=== PATIENT | male | born 1955 | race American Indian/Alaskan Native ===

== ENCOUNTER 2020-02-01 12:42 | Outpatient (CLI) | payer MEDICARE ==
--- NOTE | 2020-02-01 14:30 | Cat Scan Report ---
. CT CHEST WITHOUT CONTRAST INDICATION / CLINICAL INFORMATION: ASTHMA,WHEEZING, EXPOSURE TO ASBESTOS. TECHNIQUE: Axial CT images were obtained through the chest without contrast. Sagittal and coronal reformatted im ages. All CT scans at this location are performed using CT dose reduction for ALARA by means of autom ated exposure control. COMPARISON: None available. FINDINGS: HEART: No significant abnormality. THORACIC AORTA: No significant abnormality. MEDIASTINUM and MURALI: No significant abnormality. LUNGS: No acute air space or interstitial disease. Minimal chronic interstitial changes are noted at the lung bases. PLEURA: No significant pleural effusion. No pneumothorax. No calcified pleural plaques are detected. SKELETAL SYSTEM: No significant abnormality. UPPER ABDOMEN: Bilateral simple appearing renal cysts are noted in the superior kidneys. ADDITIONAL FINDINGS: None. IMPRESSION: No significant abnormality. No evidence for asbestosis. Renal cysts. Signer Name: Marshall Mercado Jr, MD Signed: 02/01/2020 2:25 PM Workstation Name: [id number]
--- NOTE | 2020-02-01 15:01 | XRay Report ---
CHEST 2 VIEWS INDICATION: ASTHMA,WHEEZING, EXPOSURE TO ASBESTOS. COMPARISON: None FINDINGS: SUPPORT DEVICES: None. HEART: Within normal limits. LUNGS/PLEURA: Lungs remain mildly hyperinflated with a tiny calcified granuloma in the right upper lo be. No obvious calcified plaque identified in this patient with reported as asbestos exposure. Lungs are otherwise clear. No pneumothorax. ADDITIONAL FINDINGS: None. IMPRESSION: 1. No acute findings. Signer Name: Vinicio Castillo MD Signed: 02/01/2020 2:56 PM Workstation Name: [id number]
== END 2020-02-01 12:43 | disposition home or self-care (01) ==
LOC: CT 12:42
PROVIDERS: ATTEND Internal Medicine
DX: J98.11 Atelectasis (principal); J45.909 Unspecified asthma, uncomplicated; Z77.090 Contact with and (suspected) exposure to asbestos; Z68.22 Body mass index [BMI] 22.0-22.9, adult
CPT/HCPCS: 71046; 71250